=== PATIENT | female | born 1985 | race Caucasian/White ===

== ENCOUNTER 2019-09-20 11:58 | Emergency (ER) | payer MEDICAID, OTHER ==
[2019-09-20] MEDS ORDERED: Ondansetron ODT 4 MG TAB ONE (12:02)
[2019-09-20] MEDS ORDERED: Sodium Chloride 0.9% 1,000 ML ONE (12:11)
[2019-09-20] MEDS ORDERED: Fentanyl 100 MCG/2 ML VIAL ONE ×2 (12:11→12:32)
[2019-09-20 12:31] LABS: #Basophils 0.1 thou/uL (0.0-0.2); #Eosinphils 0.1 thou/uL (0.0-0.7); #Lymphocytes 2.3 thou/uL (1.20-3.40); #Monocytes 0.5 thou/uL (0.11-0.59); #Neutrophils 4.1 thou/uL (1.40-6.50); %Basophils 1.3 % (0.0-1.0); %Eosinophils 1.1 % (0.0-10.0); %Lymphocytes 32.4 % (21.0-51.0); %Monocytes 7.1 % (0.0-10.0); %Neutrophils 58.1 % (42.0-75.0); Hemoglobin 13.8 g/dL (12.0-16.0); Mean Corpuscular Hemoglobin 31.6 pg (27.0-31.0); Mean Corpuscular Volume 92.9 fL (78.0-98.0); Mean Platelet Volume 8.1 fL (7.4-10.4); Platelet Count 243 thou/uL (130-400); RBC Distribution Width 10.9 % (11.5-14.5); Red Blood Cell (RBC) Count 4.38 mill/uL (4.20-5.40); White Blood Cell (WBC) Count 7.1 thou/uL (4.8-10.8)
[2019-09-20] MEDS ORDERED: Promethazine HCl 25 MG/ML VIAL ONE (12:32)
[2019-09-20 12:47] LABS: BHCG - Serum Negative (NEGATIVE); Pregs Control Bar Appear? YES (CONTROL BAR)
[2019-09-20 12:51] LABS: ALT (SGPT) 13 U/L (8-55); AST (SGOT) 15 U/L (5-34); Albumin 4.7 g/dL (3.5-5.0); Alkaline Phosphatase 40 U/L (40-110); Anion Gap 16 mmol/L (10-20); BUN (Urea Nitrogen) 11 mg/dL (7.0-18.7); Bilirubin, Total 0.7 mg/dL (0.2-1.2); Calc. Creatinine Clearance 0 mL/min (70-130); Calcium 9.4 mg/dL (7.8-10.44); Carbon Dioxide 21 mmol/L (22-29); Chloride 105 mmol/L (98-107); Estimated GFR-MDRD 58; Globulin 2.8 g/dL (2.4-3.5); Glucose 97 mg/dL (70-105); Lipase 10 U/L (8-78); Potassium 3.6 mmol/L (3.5-5.1); Protein, Total 7.5 g/dL (6.0-8.3); Sodium 138 mmol/L (136-145)
[2019-09-20] MEDS ORDERED: Morphine 4 MG/ML VIAL ONE (13:12)
--- NOTE | 2019-09-20 13:43 | CT ---
EXAM: CT abdomen and pelvis with IV contrast PROVIDED CLINICAL HISTORY: Abdominal pain COMPARISON: None FINDINGS: The visualized lung bases are free of significant opacity. There is moderate-severe right hydronephrosis and right hydroureter to the level of a 4 mm right UVJ region ureteral calculus. Tiny nonobstructing superior pole left renal calculus. No additional urinary tract calculi are evident. The solid abdominal organs demonstrate an unremarkable CT appearan ce otherwise. No bowel dilatation, inflammatory fat stranding, free fluid or free air apparent. No CT evidence for appendicitis. Changes of prior cholecystectomy are seen. The osseous structures demonstrate no concerning lytic or blastic lesions. IMPRESSION: Obstructing 4 mm right UVJ region calculus.
[2019-09-20] MEDS ORDERED: Ketorolac Tromethamine 30 MG/ML VIAL ONE (13:49)
[2019-09-20 15:46] LABS: Bilirubin Negative (Negative); Blood, Urine Large (Negative); Clarity Clear (Clear); Glucose, Urine (Dipstick) Negative (Negative); Leukocyte Negative (Negative); Nitrite Negative (Negative); Protein, Urine (Dipstick) Negative (Neg-Trace); Urobilinogen 0.2 mg/dL (Less than 2)
[2019-09-20 15:55] LABS: Squamous Epithelial 0-3 HPF (0-3)
[2019-09-20] MEDS ORDERED: Sodium Chloride 0.9% 2,000 ML ONE (16:34)
== END 2019-09-20 16:26 | disposition home or self-care (01) ==
LOC: NAV ERS 11:58
DX: N13.2 Hydronephrosis with renal and ureteral calculous obstruction (principal); F43.10 Post-traumatic stress disorder, unspecified; F17.210 Nicotine dependence, cigarettes, uncomplicated
CPT/HCPCS: 74177; 80053; 81003; 81015; 83690; 84703; 85025; 96361; 96365; 96375; J1885; J2270; J2550; J3010; J7050; Q0162

== ENCOUNTER 2019-09-22 12:28 | Emergency (ER) | payer OTHER ==
[2019-09-22 13:04] LABS: Bilirubin Negative (Negative); Blood, Urine Trace (Negative); Clarity Clear (Clear); Glucose, Urine (Dipstick) Negative (Negative); Leukocyte Negative (Negative); Nitrite Negative (Negative); Protein, Urine (Dipstick) Negative (Neg-Trace); Urobilinogen 0.2 mg/dL (Less than 2)
[2019-09-22] MEDS ORDERED: Sodium Chloride 0.9% 1,000 ML ONE (13:04)
[2019-09-22] MEDS ORDERED: Morphine 4 MG/ML VIAL ONE ×3 (13:04→14:57)
[2019-09-22] MEDS ORDERED: Ondansetron PF 4 MG/2 ML Vial ONE ×2 (13:04→14:58)
[2019-09-22 13:11] LABS: Pregnancy Test - Urine (BHCG) Negative (Negative); Pregu Control Background? CLEAR/WHITE (CLR/WHITE); Pregu Control Bar Appear? YES (CONTROL BAR); RBC/HPF 0-3 HPF (0-3); Specific Gravity 1.025 (1.002-1.036); Squamous Epithelial 0-3 HPF (0-3); WBC/HPF 0-3 HPF (0-3)
--- NOTE | 2019-09-22 13:55 | RAD ---
KUB: DATE: 09/22/19 HISTORY: Patient has a history of right-sided pain. History of a ureteral calculus. COMPARISON: CT examination of 09/20/19. FINDINGS: The bowel gas pattern is nonobstructed. Postop cholecystectomy changes are seen. No renal calculi are seen. There is stool in the right side of the pelvis. It is difficult to definitely visualize any ur eteral calculus at this time, although it may be obscured. IMPRESSION: No definitive ureteral calculus. POS: [id number]
[2019-09-22] MEDS ORDERED: Ketorolac Tromethamine 30 MG/ML VIAL ONE (14:12)
== END 2019-09-22 15:58 | disposition short-term general hospital (02) ==
LOC: NAV ERS 12:28
DX: N20.1 Calculus of ureter (principal); F43.10 Post-traumatic stress disorder, unspecified; F17.210 Nicotine dependence, cigarettes, uncomplicated
CPT/HCPCS: 74018; 81003; 81015; 81025; 96361; 96374; 96375; 96376; J1885; J2270; J2405; J7050

== ENCOUNTER 2020-04-21 11:17 | Outpatient (CLI) | payer OTHER ==
--- NOTE | 2020-04-21 11:56 | RAD ---
Exam: 1 view abdomen COMPARISON: 09/22/2019 HISTORY: Renal calculi FINDINGS: Right upper quadrant cholecystectomy clips. Nonspecific bowel gas pattern. No radiopaque densities suggest nephrolithiasis or ureterolithiasis. No acute osseous abnormalities IMPRESSION: No radiographic evidence of renal calculi or ureteral calculi.
== END 2020-04-21 11:18 | disposition home or self-care (01) ==
LOC: NAV RAD 11:17
PROVIDERS: ATTEND Urology
DX: N20.0 Calculus of kidney (principal)
CPT/HCPCS: 74018

== ENCOUNTER 2021-03-08 17:58 | Emergency (ER) | payer OTHER ==
[2021-03-08] MEDS ORDERED: Aspirin Chewable 81 MG TAB ONE (18:29)
[2021-03-08] MEDS ORDERED: traMADol HCl 50 MG TAB ONE (18:29)
[2021-03-08 18:38] LABS: #Basophils 0.1 thou/uL (0.0-0.2); #Eosinphils 0.1 thou/uL (0.0-0.7); #Lymphocytes 1.7 thou/uL (1.20-3.40); #Monocytes 0.5 thou/uL (0.11-0.59); #Neutrophils 3.6 thou/uL (1.40-6.50); %Basophils 1.4 % (0.0-1.0); %Eosinophils 2.4 % (0.0-10.0); %Lymphocytes 27.3 % (21.0-51.0); %Monocytes 8.9 % (0.0-10.0); Hemoglobin 13.6 g/dL (12.0-16.0); Mean Corpuscular HGB CONC 31.1 g/dL (32.0-36.0); Mean Corpuscular Hemoglobin 30.3 pg (27.0-31.0); Mean Corpuscular Volume 97.7 fL (78.0-98.0); Mean Platelet Volume 8.1 fL (7.4-10.4); Platelet Count 215 thou/uL (130-400); RBC Distribution Width 11.1 % (11.5-14.5); Red Blood Cell (RBC) Count 4.48 mill/uL (4.20-5.40)
[2021-03-08 18:54] LABS: ALT (SGPT) 19 U/L (8-55); AST (SGOT) 16 U/L (5-34); Albumin 4.3 g/dL (3.5-5.0); Alkaline Phosphatase 42 U/L (40-110); Anion Gap 14 mmol/L (10-20); BUN (Urea Nitrogen) 9 mg/dL (7.0-18.7); Bilirubin, Total 0.3 mg/dL (0.2-1.2); Calc. Creatinine Clearance 0 mL/min (70-130); Calcium 8.8 mg/dL (7.8-10.44); Carbon Dioxide 24 mmol/L (22-29); Chloride 103 mmol/L (98-107); Globulin 2.9 g/dL (2.4-3.5); Glucose 73 mg/dL (70-105); Potassium 3.9 mmol/L (3.5-5.1); Protein, Total 7.2 g/dL (6.0-8.3); Sodium 137 mmol/L (136-145)
[2021-03-09 14:43] LABS: SARS-CoV-2 PCR by NAA Not Detected (NotDetected)
== END 2021-03-08 19:50 | disposition home or self-care (01) ==
LOC: NAV ERS 17:58
DX: R07.89 Other chest pain (principal); J06.9 Acute upper respiratory infection, unspecified; Z20.822 Contact with and (suspected) exposure to COVID-19; F17.210 Nicotine dependence, cigarettes, uncomplicated; Z79.899 Other long term (current) drug therapy
CPT/HCPCS: 71045; 80053; 84484; 85025; 93005; U0003; U0005

== ENCOUNTER 2022-02-18 20:28 | Emergency (ER) | payer OTHER | END 2022-02-18 21:33 | disposition home or self-care (01) | LOC: NAV ERS 20:28 | DX: S83.91XA Sprain of unspecified site of right knee, initial encounter (principal); F17.210 Nicotine dependence, cigarettes, uncomplicated; W18.43XA Slipping, tripping and stumbling without falling due to stepping from one level to another, initial encounter; Z87.442 Personal history of urinary calculi | CPT/HCPCS: 29505 ==

== ENCOUNTER 2024-09-10 13:30 | Emergency (ER) | payer OTHER ==
[2024-09-10 14:10] LABS: #Eosinophils 0.1 thou/uL (0.0-0.7); #Lymphocytes 1.5 thou/uL (1.20-3.40); #Monocytes 0.3 thou/uL (0.11-0.59); #Neutrophils 3.3 thou/uL (1.40-6.50); %Basophils 0.7 % (0.0-1.0); %Eosinophils 1.5 % (0.0-10.0); %Lymphocytes 28.9 % (21.0-51.0); %Monocytes 5.6 % (0.0-10.0); %Neutrophils 63.3 % (42.0-75.0); Hemoglobin 12.7 g/dL (12.0-16.0); Mean Corpuscular HGB CONC 34.4 g/dL (32.0-36.0); Mean Corpuscular Hemoglobin 30.8 pg (27.0-31.0); Mean Corpuscular Volume 89.5 fl (78.0-98.0); Mean Platelet Volume 7.1 fL (7.4-10.4); Platelet Count 272 10x3/uL (130-400); RBC Distribution Width 10.7 % (11.5-14.5); Red Blood Cell (RBC) Count 4.13 mill/uL (4.20-5.40); White Blood Cell (WBC) Count 5.3 10x3/uL (4.8-10.8)
[2024-09-10 14:30] LABS: ALT (SGPT) 10 U/L (8-55); AST (SGOT) 10 U/L (5-34); Albumin 3.9 g/dL (3.5-5.0); Alkaline Phosphatase 38 U/L (40-110); Anion Gap 11 mmol/L (10-20); BUN (Urea Nitrogen) 11 mg/dL (7.0-18.7); Bilirubin, Total 0.4 mg/dL (0.2-1.2); Calc. Creatinine Clearance 0 mL/min (70-130); Calcium 8.8 mg/dL (7.8-10.44); Carbon Dioxide 25 mmol/L (22-29); Chloride 106 mmol/L (98-107); Estimated GFR 79; Globulin 3.3 g/dL (2.4-3.5); Glucose 148 mg/dL (70-105); Potassium 3.4 mmol/L (3.5-5.1); Protein, Total 7.2 g/dL (6.0-8.3); Sodium 139 mmol/L (136-145)
[2024-09-10 14:31] LABS: Troponin I Less than 0.010 ng/mL (< 0.028)
== END 2024-09-10 15:10 | disposition home or self-care (01) ==
LOC: NAV ERS 13:30
DX: R07.2 Precordial pain (principal); R06.4 Hyperventilation; F17.210 Nicotine dependence, cigarettes, uncomplicated
CPT/HCPCS: 71045; 80053; 84484; 85025; 93005